=== PATIENT | male | born 2000 | race African-American/Black ===

== ENCOUNTER 2023-06-20 15:31 | Emergency (ER) | payer SELFPAY ==
[2023-06-20 15:43] VITALS: BP 122/63; PULSE 74; RESP 20; TEMP 98.3; BMI 22.1
== END 2023-06-20 18:26 | disposition home or self-care (01) ==
LOC: JERFT 15:31
DX: R21 Rash and other nonspecific skin eruption (principal); Z48.02 Encounter for removal of sutures
CPT/HCPCS: 99283-25